=== PATIENT | male | born 1980 | race Caucasian/White ===

== ENCOUNTER 2017-03-21 15:12 | Outpatient (CLI) | payer OTHER ==
[~2017-03-21] VITALS: Ht 185.4 cm; Wt 91.8 kg
[2017-03-21] MEDS ORDERED: SERT-165 PO (15:36)
[2017-03-21] MEDS ORDERED: BUSP10TA2 PO (15:36)
[2017-03-21] MEDS ORDERED: OMEP40CA6 PO (15:36)
[2017-03-21] MEDS ORDERED: HYDR25TA6 PO (15:36)
[2017-03-21] MEDS ORDERED: AMLO-147 PO (15:36)
[2017-03-21 15:40] VITALS: BP 102/50; PULSE 71; RESP 16; Ht 185.4 cm; Wt 91.8 kg
--- NOTE | 2017-03-21 16:17 | PN ---
Date/Time of Note Date/Time of Note DATE: 03/21/17 TIME: 16:12 Outpatient Progress Note Chief Complaint Pancreatitis/hypertension/hyperlipidemia/anxiety/cirrhosis HPI Pancreatitis/patient had acute pancreatitis, and patient was recently hospitalized, patient still has some abdominal discomfort, no nausea or vomiting , Hypertension/no headache or dizziness, patient has no impaired vision, or no blood in the urine, Hyperlipidemia/no xanthoma, Anxiety/patient has anxiety, patient on BuSpar, Cirrhosis/history of alcohol abuse and cirrhosis, no jaundice at present, Review of Systems Const: No Fever, no chills, no Wt. loss, no Fatigue, normal appetite, no diaphoresis. Eyes: No pain, no discharge, no redness, no visual change, no foreign body. ENT: No pain, no bleeding, no congestion, no sore throat, no dysphagia, no discharge or rhinitis. Lymph: No adenopathy, no tender nodes, no lymphedema. Resp: No SOB, no cough, no sputum, no wheezing, no chest pain. CV: No chest pain, no palpitaions, no BALDERAS, no PND, no edema. GI: Normal appetite, mild abdominal pain, no nausea, no vomiting, no diarrhea, no blood, no constipation. : No frequency, no urgency, no dysuria, no hematuria, no flank pain, no discharge, no bleeding. Musc: no back pain, no neck pain, no knee pain, no restricted ROM. Skin: No rash, no skin lesions, no erythema, no laceration, no bruising, no pruritus. Neuro: No PICKARD, no dizziness, no syncope, no seizure, no focal-weakness. Endo: No polyuria, no polydypsia, no dry-skin, no temp-intolerance. Psych: No hallucinations, no depression, no anxiety, no suicidal ideation. Ext: No edema, no pain, no ulcer, no weakness. Physical Exam Vital Signs Date Time Temp Pulse Resp B/P Pulse Ox O2 Delivery O2 Flow Rate FiO2 03/21/17 15:40 98.0 71 16 102/50 95 Room Air General Appearance: A 36 year-old male who appears well-developed, well- nourished, in no acute distress. HEENT: Head normocephalic, atraumatic. Pupils equal, round, reactive to light and accommodate. Sclerae are no jaundice. Nasal turbinates pink without erythema or nasal discharge. Mucous membranes pink and moist without lesions. Oropharynx clear without any exudate or discharge. NECK: Supple. Trachea midline, No thyromegaly, No cervical lymphadenopathy, No mass, No carotid bruits, No JVD, Carotid pulses 2+ bilaterally. PULMONARY: Clear to auscultaion bilaterally, No retractions, Chest expansion symmetric bilaterally, no rales, no ronchi, no dulness on percussion. CARDIAC: Normal SI and S2, Regular rate and rythm, no murmur, gallop, or rub. GASTROINTESTINAL: Abdomen is soft, mild abdominal discomfort,, Non Rigid, No distention, Positive bowel sounds x4 quadrants, Liver normal. SKIN: Warm, dry, no rash, no bruise, no echmosis. EXTREMITIES: Bilateral lower extremities normal, no edema, no phlabitus, pulse palpable, no contracture. MUSCULOSKELETAL: Spine Normal, Non-tender, Normal range of motion, No swelling, no deformity, no clubbing, or cyanosis, the patient has no edema to bilateral lower extremities, dorsalis pedis pulses palpable bilaterally. NEUROLOGIC: The patient is awake, alert, oriented, responding to yes/no questions appropriately, moving all extremities, cranial nerve intact, normal strenght, normal power, normal coordination, normal gait. Allergies Coded Allergies: amphetamine (Verified Allergy, Unknown, 03/21/17) dextroamphetamine (Verified Allergy, Unknown, 03/21/17) PMH Acute pancreatitis resolving/hypertension/hyperlipidemia/anxiety/cirrhosis/ hypocalcemia Social Hx No smoking, patient used to drink alcohol, patient has not been drinking since discharge from hospital, Family Hx Father has diabetes, mother had hyperlipidemia, Assessment/Plan Impression Pancreatitis resolving Hypertension/hyperlipidemia/anxiety/cirrhosis History of pleural effusion, history of sinus tachycardia, history of hyperkalemia, history of bilateral pneumonia, Plan Patient education done about his condition, patient to follow with the primary care physician, and surgery, Patient education done about his condition and disease, Discussed about avoiding alcohol, discussed with the patient if patient has any complication fever sinus tachycardia, or severe abdominal pain or any other problem to contact primary care physicians or ER, Protonix 40 mg daily or omeprazole 40 mg daily #30 Medications Home Meds Reported Medications Sertraline Hcl* (Sertraline Hcl*) 100 Mg Tablet, 100 MG PO DAILY, #30 TAB 03/21/17 Omeprazole* (Omeprazole*) 40 Mg Capsule.dr, 40 MG PO DAILY, #30 CAP 03/21/17 Hydrochlorothiazide* (Hydrochlorothiazide*) 25 Mg Tab, 25 MG PO DAILY, #30 TAB 03/21/17 Buspirone Hcl* (Buspirone Hcl*) 10 Mg Tab, 10 MG PO BID, TAB 03/21/17 Amlodipine Besylate* (Amlodipine Besylate*) 10 Mg Tablet, 10 MG PO DAILY, #30 TAB 03/21/17 AUDREY DUARTE MD Mar 21, 2017 16:17
== END 2017-03-21 16:51 | disposition home or self-care (01) ==
LOC: DCC 15:12
PROVIDERS: ATTEND Internal Medicine
DX: K85.90 Acute pancreatitis without necrosis or infection, unspecified (principal); I10 Essential (primary) hypertension; E78.5 Hyperlipidemia, unspecified; K74.60 Unspecified cirrhosis of liver
CPT/HCPCS: G0463

== ENCOUNTER 2017-04-04 14:35 | Outpatient (CLI) | END 2017-04-04 17:00 | disposition home or self-care (01) ==

== ENCOUNTER 2017-05-17 15:04 | Outpatient (CLI) | END 2017-05-17 17:00 | disposition home or self-care (01) ==

== ENCOUNTER 2017-07-04 10:39 | Day surgery (SDC) | END 2017-07-04 15:43 | disposition home or self-care (01) ==

== ENCOUNTER 2017-07-19 09:52 | Outpatient (CLI) | END 2017-07-19 15:54 | disposition home or self-care (01) ==